=== PATIENT | male | born 1975 | race Caucasian/White ===

== ENCOUNTER → 2023-07-14 13:44 | Outpatient (REF) | payer OTHER, SELFPAY | LOC: RAD 13:44 | PROVIDERS: ATTENDING PHYSICIAN Nurse Practitioner Family | DX: R19.00 Intra-abdominal and pelvic swelling, mass and lump, unspecified site (principal) | CPT/HCPCS: 76705 ==

== ENCOUNTER 2024-07-16 17:53 | Emergency (ER) | payer OTHER, SELFPAY ==
[2024-07-16 17:57] VITALS: BP 160/88
[2024-07-16 18:10] LABS: % Eosinophils 3.9 % (0-6); % Immature Granulocytes 0.3 % (0-0.5); % Lymphocytes 27.6 % (20.5-51.1); % Monocytes 10.4 % (1.7-9.3); % Neutrophils 56.8 % (42.2-75.2); Absolute Basophils 0.1 10^3/uL (0-0.2); Absolute Eosinophils 0.3 10^3/uL (0-0.7); Absolute Monocytes 0.7 10^3/uL (0.1-0.6); Hematocrit 43.1 % (39.0-52.0); Hemoglobin 14.4 g/dL (13.0-18.0); Mean Corp Hgb Conc. 33.4 g/dL (33.0-37.0); Mean Corpuscular Hgb 29.9 pg (27.0-31.0); Mean Corpuscular Volume 89.6 fL (80.0-94.0); Mean Platelet Volume 9.7 fL (7.4-10.4); Nucleated Red Blood Cells % 0 % (-); Platelet Count 241 10^3/uL (130-400); Red Blood Cell Count 4.81 10^6/uL (4.70-6.10); Red Cell Dist. Width 12.4 % (11.5-14.5); White Blood Cell Count 7.1 10^3/uL (4.8-10.8)
[2024-07-16 18:29] LABS: ALT (SGPT) 20 U/L (0-50); AST (SGOT) 20 U/L (17-59); Alkaline Phosphatase 50 U/L (38-126); Blood Urea Nitrogen 17 mg/dl (9-20); Calcium 9.3 mg/dl (8.4-10.2); Carbon Dioxide 27 mmol/L (22-30); Chloride 103 mmol/L (98-107); Glucose 104 mg/dl (70-99); Sodium 136 mmol/L (135-145); Total Bilirubin 0.5 mg/dl (0.2-1.3); Total Protein 6.8 g/dl (6.3-8.2); eGFR > 60.00
[2024-07-16 18:36] LABS: Troponin I < 0.012 ng/ml
[2024-07-16 20:30] VITALS: BMI 42.6
--- NOTE | 2024-07-16 21:42 | ED.GENMED ---
History of Present Illness
General
Chief Complaint: Chest Pain
Source: patient
Exam Limitations: none
Time Seen by Provider: 07/16/24 21:02
Nursing documentation reviewed up to this point in time: agreed with
History of Present Illness
History of Present Illness:
49-year-old male with no reported chronic medical issues presents to the ER for evaluation of chest pain. Patient reports onset of symptoms at around 5:30 PM while at rest and symptoms have been intermittent since then. He reports a sharp/pinching
pain left parasternal region radiates towards the left scapula. No clear triggering or relieving factors noted. He reports mild associated shortness of breath. Denies any abdominal pain, nausea, vomiting, diaphoresis. He denies any recent cough,
fevers, chills. Denies any swelling or pain in the legs. He denies any personal or family history of heart disease. Denies any recent travel, denies any history of DVT/PE. He denies similar symptoms in the past.
Past History
Past History
ED Past Medical History: None
ED Past Surgical History: None
Social History
Tobacco: Non-smoker
Alcohol: None
Living: with family
Review of Systems
Review of Systems
All Other Systems: ROS reviewed and negative except as documented in HPI and ROS
Constitutional: Denies fever or chills
Respiratory: Reports trouble breathing; Denies cough
Cardiac: Reports chest pain; Denies diaphoresis or palpitations
ABD/GI: Denies abdominal pain, nausea or vomiting
: Denies flank pain
Musculoskeletal: Denies edema or neck pain
Neurological: Denies dizzy or headache
Phy Exam
Physical Exam
Physical Exam:
General: Awake, alert; no acute distress
Head: Normocephalic, atraumatic
Eyes: Conjunctiva normal, sclera anicteric
Throat: Airway intact, handling secretions
Neck: Trachea midline, no JVD
Lungs: Clear to auscultation bilaterally, no wheezing, rales, rhonchi
Heart: Regular rate and rhythm, no murmurs, gallops, or rubs
Abd: Soft, non distended, nontender
Neuro: No gross deficits
Skin: no rash in area of concern
Extremities: No edema in extremities, equal pulses in all extremities
Scores
Heart Failure Risk
Heart Failure Risk Score: Not Applicable
Heart Score for Chest Pain Patients
STEMI patient?: No
History: Slightly or Non-Suspicious
ECG: Normal
Age: >45 - <65 years
Risk Factors: 1 or 2 Risk Factors (Obesity)
Troponin: </= Normal Limit
Heart Score for Chest Pain Patients: 2
Heart Score Risk: 2.5% MACE over next 6 weeks
PE Wells Score
Symptoms of DVT: No
No alternative diagnosis better explains the illness: No
Tachycardia with pulse > 100: No
Immobilization (>=3 days) or surgery within previous 4 weeks: No
Prior history of DVT or pulmonary embolism: No
Presence of hemoptysis: No
Presence of malignancy: No
Pulmonary Embolism Risk Score: 0
Probability of PE: Pt is low risk
Withdrawal Assessment of Alcohol
Withdrawal Assessment Completed?: Not applicable
Course
Orders/Labs/Results
Orders:
Orders
07/16/24 17:53
Electrocardiogram (*1) Urgent
Reason for Study: Chest Pain
EKG- Treatment ONCE
07/16/24 18:02
Complete Blood Count/With Diff Urgent
Comprehensive Metabolic Panel Urgent
Troponin I Urgent
07/16/24 21:04
CR Chest - 2 Views Urgent
Comment:
Reason For Exam: chest pain, SOB
07/16/24 22:06
D-Dimer Urgent
Troponin I Urgent
Abnormal Lab Results
07/16/24
18:02
Absolute Monos (auto) 0.7 H 10^3/uL
(0.1-0.6)
Monocytes % 10.4 H %
(1.7-9.3)
Glucose 104 H mg/dl
(70-99)
07/16/24 18:02
07/16/24 18:02
Vital Signs
Initial and Last Documented VS:
Initial Vital Signs
Temp Pulse Resp BP Pulse Ox
36.7 C 73 16 160/88 98
07/16/24 17:57 07/16/24 17:57 07/16/24 17:57 07/16/24 17:57 07/16/24 17:57
Last Documented Vital Signs
Temp Pulse Resp BP Pulse Ox
36.7 C 75 25 160/88 96
07/16/24 17:57 07/16/24 22:30 07/16/24 22:30 07/16/24 17:57 07/16/24 22:30
MDM/Problems Addressed
Differential Diagnosis Includes:
GERD, costochondritis, PE, angina/ACS, pneumothorax
MDM/Problems Addressed:
49-year-old male presents for evaluation of atypical nonexertional chest pains intermittent for the past few hours�asymptomatic by my assessment. Hypertensive otherwise normal vitals. Physical exam as above. EKG shows sinus rhythm with no acute
ischemia. Place an IV check labs including CBC and CMP, troponin. Check D-dimer. Check chest x-ray. Monitor closely reassess after the above.
Labs reviewed: CBC unremarkable, CMP no clinically significant abnormalities. Initial troponin undetectable. D-dimer still pending. Chest x-ray reviewed by me shows no acute disease. Vital signs stable. Continue to monitor.
D-dimer negative. Repeat troponin undetectable. Patient remains well-appearing, blood pressure improved. Low suspicion for emergent pathology possibly costochondritis; there was some degenerative disease noted on chest x-ray in the thoracic spine
could be pinched nerve. Stable for discharge follow-up with primary doctor as an outpatient. Patient is very comfortable with this plan. All questions answered.
Acute Exacerbation and/or Progression of Chronic Illness:
Acutely hypertensive
Acute Exacerbation and/or Progression of Chronic Illness: HTN
*Radiology
Radiology exam reviewed: preliminary read by ED provider
*Pulse Oximetry
Patient hypoxic: no
*EKG
Interpreted by ED Provider?: Yes
Heart Rate: 65
Rate: normal
Rhythm: sinus
[place]: normal axis
Interval: normal interval
QRS Pattern: right bundle branch block (Incomplete)
Ischemia: no ischemia
*Critical Care Note
Total Time (30-74mins, 75-104mins- exclusive of procedures): Not Applicable
Data Reviewed
Source: patient
ED Attending Note
-
Portions of this chart may have been created with voice recognition software.� Occasional wrong word or��sound alike� substitutions may have occurred due to the inherent limitations of voice recognition software.
Discharge Plan
Departure
Patient Disposition: Home (Routine Discharge)
Date of Disposition: 07/16/24
Time of Disposition: 22:51
Patient with high blood pressure during this ER visit?: Yes
Discharge Problem:
Chest pain
Instructions: Chest Pain PCP Follow Up
Prescriptions:
No Action
fluticasone propionate 1 SPRAY spray,suspension
2 spray intranasal DAILY
levofloxacin 500 MG tablet
750 mg PO DAILY Qty: 7 0RF
Referrals:
Harry Breen MD [Family Provider] - Follow up in 5-7 days
Activity Restrictions/Additional Instructions:
Thank you for visiting the Emergency Department at [facility].
1. Please schedule a follow up appointment as directed. Call first thing tomorrow morning to make an appointment.
2. If indicated, please take your medications as instructed and indicated on discharge paperwork.
3. If any of your symptoms do not improve, or persist, or become more severe within 6-12 hours, please return to the emergency department for further care.
4. Please return to the emergency department if you develop a headache, neck pain/stiffness, fever greater than 100.4F, chest pain, shortness of breath, persistent nausea, vomiting, slurred speech, difficulty walking, numbness/tingling, weakness,
signs of infection or any other symptoms that are worrisome to you.
Please call [phone] if you have any questions.
Interventions
Interventions:
*Risk Screen - Suicide Last Done: 07/16/24 17:57
*General Assessment Last Done: 07/16/24 20:25
*Neglect/Abuse Screening Last Done: 07/16/24 17:57
*ED- Fall Risk Assessment Last Done: 07/16/24 20:25
*ED COVID-19 Vaccine History Last Done: 07/16/24 20:25
ED- Cardiac Assessment Last Done: 07/16/24 20:25
Discharge Date and Time
Print Language: RUSSIAN
[2024-07-16 22:38] LABS: D-Dimer < 0.27 ug/mlFEU (0.00-0.50)
[2024-07-16 22:40] LABS: Troponin I < 0.012 ng/ml
[2024-07-16 23:09] VITALS: BP 130/74
== END 2024-07-16 23:10 | disposition home or self-care (01) ==
LOC: EMR 17:53
PROVIDERS: Emergency Medicine; EMERGENCY PHYSICIAN Emergency Medicine; FAMILY PHYSICIAN Family Medicine
DX: R07.89 Other chest pain (principal); I10 Essential (primary) hypertension
CPT/HCPCS: 99284; 71046; 80053; 84484; 85025; 85379; 93005

== ENCOUNTER → 2024-08-29 07:37 | Outpatient (REF) | payer OTHER, SELFPAY | LOC: HWRAD 07:37 | PROVIDERS: ATTENDING PHYSICIAN Family Medicine; FAMILY PHYSICIAN Family Medicine | DX: R10.30 Lower abdominal pain, unspecified (principal) | CPT/HCPCS: 76705 ==